=== PATIENT | female | born 1995 | race Asian ===

== ENCOUNTER 2018-04-04 16:18 | Emergency (ER) | payer OTHER ==
[2018-04-04] MEDS ORDERED: cefTRIAXone(*) 1 GM in NS 0.9% 50 ML* 50 ML IVPB ONE (19:11)
[2018-04-04 19:27] LABS: ABS Basophils 0.1 10^3/ul (0-0.2); ABS Eosinophils 0.5 10^3/ul (0-0.6); ABS Monocytes 0.9 10^3/ul (0-0.8); ABS Neutrophils 6.3 10^3/ul (1.5-7.7); ABS Nucleated RBC 0 10^3/ul; Eosinophil % 4.5 % (0-6); Hematocrit 40 % (35-47); Hemoglobin 13.1 g/dl (12.0-16.0); Mean Corpuscular HGB Conc 33 g/dl (31-36); Mean Corpuscular Hemoglobin 30 pg (27-31); Mean Corpuscular Volume 91 fL (80-97); Mean Platelet Volume 7.4 um3 (7.4-10.4); Nucleated Red Blood Cells % 0.1; Platelet Count 255 10^3/ul (150-450); Red Blood Count 4.37 10^6/ul (4.00-5.40); Red Cell Distribution Width 13 % (10.5-15); White Blood Count 10.7 10^3/ul (3.5-10.8)
[2018-04-04 19:45] LABS: EGFR Non-African American 93.5 (>60)
--- NOTE | 2018-04-04 20:40 | ED ---
Hannah Parker Julia, scribed for Eyad Mo MD on 04/04/18 at 1942 . Skin Complaint - HPI Summary HPI Summary: This patient is a 22 year old F presenting to [facility] with a chief complaint of left arm redness, pain and swelling from the left wrist to the under arm since yesterday morning. Pain is 2/10 in severity. She noticed a bit to her left wrist area, but is unsure from what. She additionally reports swelling of the right check. Denies itching or eye pain. - History of Current Complaint Chief Complaint: EDExtremityUpper Stated Complaint: LT ARM RASH/SWELLING Hx Obtained From: Patient Onset/Duration: Started Days Ago Skin Exposure Onset/Duration: Days Ago Timing: Constant Pain Intensity: 2 Pain Scale Used: 0-10 Numeric Skin Location: Face - right check, Arm - left Character: Swelling, Pain, Redness Alleviating Symptom(s): Nothing Associated Signs & Symptoms: Negative Related History: Insect Bite/Sting - Allergy/Home Medications Allergies/Adverse Reactions: Allergies Allergy/AdvReac Type Severity Reaction Status Date / Time No Known Allergies Allergy Verified 04/04/18 16:26 PMH/Surg Hx/FS Hx/Imm Hx Endocrine/Hematology History: Denies: Hx Diabetes Respiratory History: Denies: Hx Asthma EENT History: Denies: Hx Deafness - Surgical History Surgery Procedure, Year, and Place: none Infectious Disease History: No Infectious Disease History: Denies: Traveled Outside the [place] in Last 30 Days - Family History Known Family History: Negative: Cardiac Disease, Diabetes - Social History Alcohol Use: None Substance Use Type: Reports: None Smoking Status (MU): Never Smoked Tobacco Review of Systems Eyes: Negative - eye pain Positive: Edema - LUE, right check Positive: Other - redness LUE. Negative: Rash - itching All Other Systems Reviewed And Are Negative: Yes Physical Exam - Summary Physical Exam Summary: VITAL SIGNS: Reviewed. GENERAL: Patient is a well-developed and nourished female who is lying comfortable in the stretcher. Patient is not in any acute respiratory distress. HEAD AND FACE: No signs of trauma. No ecchymosis, hematomas or skull depressions. No sinus tenderness. EYES: PERRLA, EOMI x 2, No injected conjunctiva, no nystagmus. Swelling of R check. No eye entraptment EARS: Hearing grossly intact. Ear canals and tympanic membranes are within normal limits. MOUTH: Oropharynx within normal limits. NECK: Supple, trachea is midline, no adenopathy, no JVD, no carotid bruit, no c- spine tenderness, neck with full ROM. CHEST: Symmetric, no tenderness at palpation LUNGS: Clear to auscultation bilaterally. No wheezing or crackles. CVS: Regular rate and rhythm, S1 and S2 present, no murmurs or gallops appreciated. ABDOMEN: Soft, non-tender. No signs of distention. No rebound no guarding, and no masses palpated. Bowel sounds are normal. EXTREMITIES: FROM in all major joints, no edema, no cyanosis or clubbing. NEURO: Alert and oriented x 3. No acute neurological deficits. Speech is normal and follows commands. SKIN: Dry and warm, erythema and swelling of the ventral aspect of the left wrist to the left underarm, small erythema and swelling of right check Triage Information Reviewed: Yes Vital Signs On Initial Exam: Initial Vitals Temp Pulse Resp BP Pulse Ox 99.1 F 84 14 106/79 98 04/04/18 16:19 04/04/18 16:19 04/04/18 16:19 04/04/18 16:19 04/04/18 16:19 Vital Signs Reviewed: Yes Diagnostics - Vital Signs Vital Signs Temp Pulse Resp BP Pulse Ox 04/04/18 19:34 98 04/04/18 18:06 98.1 F 78 15 108/69 98 04/04/18 16:19 99.1 F 84 14 106/79 98 - Laboratory Lab Results: Lab Results 04/04/18 Range/Units 19:18 WBC 10.7 (3.5-10.8) 10^3/ul RBC 4.37 (4.00-5.40) 10^6/ul Hgb 13.1 (12.0-16.0) g/dl Hct 40 (35-47) % MCV 91 (80-97) fL MCH 30 (27-31) pg MCHC 33 (31-36) g/dl RDW 13 (10.5-15) % Plt Count 255 (150-450) 10^3/ul MPV 7.4 (7.4-10.4) um3 Neut % (Auto) 58.9 (38-83) % Lymph % (Auto) 28.0 (25-47) % [place] % (Auto) 7.9 H (0-7) % Eos % (Auto) 4.5 (0-6) % Baso % (Auto) 0.7 (0-2) % Absolute Neuts (auto) 6.3 (1.5-7.7) 10^3/ul Absolute Lymphs (auto) 3.0 (1.0-4.8) 10^3/ul Absolute Monos (auto) 0.9 H (0-0.8) 10^3/ul Absolute Eos (auto) 0.5 (0-0.6) 10^3/ul Absolute Basos (auto) 0.1 (0-0.2) 10^3/ul Absolute Nucleated RBC 0 10^3/ul Nucleated RBC % 0.1 ESR Pending Result Diagrams: 04/04/18 19:18 04/04/18 19:18 Lab Statement: Any lab studies that have been ordered have been reviewed, and results considered in the medical decision making process. Course/Dx - Course Assessment/Plan: Blood test Results without any significant abnormality. Extremities the patient has left upper extremity cellulitis for which the patient was given 1 dose of Rocephin. Since the patient doesn't have any increase in WBCs, she does have any fever, I believe that the patient can be treated as an outpatient. Therefore the patient will be given a prescription for Bactrim. I demarcated and they cellulitis and erythema and asked the patient to return to the emergency room. This erythema surpasses the lines. She understands and agrees. I discussed all the findings and test results with the patient. Patient was instructed to return to the emergency room immediately if any of the symptoms return or worsens. Plan of care was discussed with the patient and understands and agrees. All questions were answered at patient satisfaction. There were no further complaints or concerns. Lung exam before discharge: CTA B/L. Good air exchange. No wheezing or crackles heard. CVS: S1 and S2 present. No murmurs appreciated. Patient is alert and oriented x 3. Patient is hemodynamically stable. Patient will be discharged home with follow up PCP in the next 2-3 day - Diagnoses Provider Diagnoses: Cellulitis Discharge - Sign-Out/Discharge Documenting (check all that apply): Discharge/Admit/Transfer - Discharge Plan Condition: Stable Disposition: HOME Prescriptions: Sulfamethox/Trimethoprim DS* [Bactrim DS 800/160 TAB*] 1 tab PO BID #20 tab Patient Education Materials: Cellulitis (ED) Referrals: [facility] – [place] PH[facility]IAN REFERRAL [Outside] (If a primary care physician is needed you may contact this number.) Additional Instructions: RETURN TO THE EMERGENCY DEPARTMENT FOR ANY WORSENING OR NEW SYMPTOMS. - Billing Disposition and Condition Condition: STABLE Disposition: Home The documentation as recorded by the Hannah meier Julia accurately reflects the service I personally performed and the decisions made by Chepe rangel Walter, MD.
[2018-04-04 20:52] VITALS: BP 114/68
== END 2018-04-04 20:51 | disposition home or self-care (01) ==
LOC: ED 16:18
DX: L03.114 Cellulitis of left upper limb (principal)
CPT/HCPCS: 36415; 80053; 83605; 85025; 85652; 86140; 87040; 96374; 99284; J0696